=== PATIENT | female | born 1965 | race African-American/Black ===

== ENCOUNTER 2024-12-23 07:59 | Emergency (ER) | payer OTHER, SELFPAY ==
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
--- NOTE | ~2024-12-23 | XR_ITS ---
EXAMINATION: XR chest 2V, 12/23/2024 9:15 CDT HISTORY: rib pain COMPARISON: No comparisons available. Technique: 2 views obtained. Findings: The lungs are clear, no effusion. No pneumothorax. Heart is normal size. Mediastinal and hilar contours are within normal limits. Bony thorax no acute abnormality. Impression: No acute cardiopulmonary abnormality. Reviewed, dictated and finalized at location A. Impression: No acute cardiopulmonary abnormality.
[2024-12-23 08:19] VITALS: BP 146/77; PULSE 88; RESP 16; TEMP 36.7; O2SAT 100
[2024-12-23] MEDS: IBUPROFEN 600 MG TABLET PO (09:33)
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
[2024-12-23 10:20] VITALS: BP 157/77; PULSE 99; RESP 16; O2SAT 99
--- OUTSIDE RECORDS SUMMARY | 2024-12-23 10:21 | XMS_ITS | Clinical Summary ---
Author Organization [facility] Building Address [address] [place] [address] Care Team Providers Care Software Engineering Associate Manager Name Role Phone Dalia Chase MD Primary Care Pro vider Allergies No known active allergies Medications amoxicillin-cla vulanate (AUGMENTIN) 875-125 mg per tablet Take 1 tablet by mouth every 12 (twelve) hours 14 tablet 08/25/2024 Active predniSONE (DELTASONE) 20 mg tablet Take 2 tablets (40 mg) by mouth daily 8 tablet 08/25/2024 Active ketorolac (TORADOL) 10 mg tablet Take 1 tablet (10 mg total) by mouth every 6 (six) hours as needed for pain 20 tablet 08/25/2024 Active Active Problems Problem Noted Date Diagnosed Date Annual physical exam 03/15/2022 Assessment & Plan (03/15/2022 6:36 AM COMPANY ACCOUNTANT): Reviewed PMH & PHQ Screening PHQ-2 Total Score (If total score is 3 or more points, staff should administer the PHQ-9): 0 PHQ-9 Total Score: 1 Reviewed medications and supplements HCM: orders placed as needed Cigarette nicotine dependence without complicati on 03/12/2022 Assessment & Plan (03/12/2022 11:10 AM COMPANY ACCOUNTANT): Interested in quitting. Discussed wellbutrin, she defers wants to try lozenges/gum first Elevated BP without diagnosis of hypertension Assessment & Plan (03/12/2022 11:08 AM COMPANY ACCOUNTANT): Blood pressure within normal limits today Recommend monitoring at home, follow up if consistently >140/90 Discussed lifestyle modifications Immunizations Immunization Administration Dates Next Due Influenza, Quadrivalent, Spl it, Preservative Free, Intramuscular 03/12/2022 Surgical History Surgery Date Site/Laterality Comments HYSTERECTOMY 04/15/2012 - 04/14/2013 total Family History Medical History Relation Name Comments Cancer Father No Known Problems Mother Breast cancer Mother's Sister Relation Name Status Comments Father Mother Alive Mother's Sister Social History Tobacco Use Types Packs/Day Years Used Date Smoking Tobacco: Every Day Cigarettes Tobacco Cessation:Ready to Q uit: Not Asked; Counseling Given: Not Answered AUDIT-C Answer Date Recorded Q1: How often do you have a drink containing alcohol? 4 or more times a week 03/12/2022 Average Number of Drinks Not on file 022 Frequency of Binge Drinking Not on file 02/14 PHQ-2 Answer Date Recorded PHQ-2 Total Score (If total score is 3 or more points, staff should administer the PHQ-9) 0 03/12/2022 Personal Safety Answer Date Recorded Have you ever been in or are you currently in a harmful physical or emotional relationship or is someone making you feel afraid or unsafe? Denies 08/25/2024 Comments No Sex and Gender Information Value Date Recorded Sex Assigned at Not on file Legal Sex Female 2:53 PM CDT Gender Identity Not on file Sexual Orientation Not on file Obstetrics History Para Term AB IAB SAB Ectopic Multiple Livin g Live Births 3 2 2 0 1 0 1 0 0 2 2 Date Outcome GA Total Labor Labor/2nd/3rd Weight Sex Type Anes PTL Shanon A1 A5 Name Clin Term Term SAB Last Filed Vital Signs Vital Sign Reading Time Taken Comments Blood Pressure 181/93 08/25/2024 9:35 PM CDT Pulse 74 08/25/2024 5:51 PM CDT Temperature 37.2 C (99 F) 08/25/2024 5:51 PM CDT Respiratory Rate 18 08/25/2024 9:35 PM CDT Oxygen Saturation 99% 08/25/2024 5:51 PM CDT Inhaled Oxygen Concentration - - Weight 53.2 kg (117 lb 4.6 oz) 08/25/2024 5:51 P M CDT Height 149.9 cm (4' 11) 08/25/2024 5:51 PM CDT Body Mass Index 23.69 08/25/2024 5:51 PM CDT Plan of Treatment Health Maintenance Due Date Last Done Comments Colon Cancer Screening-Colonoscopy 1965 DTaP/Tdap/Td Vaccine (1 - Tdap) 08/03/1974 Hepatitis B Screening 08/03/1981 Pneumococcal vaccine <65 (1 of 2 - PCV) 08/03/1982 Zoster Vaccine (1 of 2) 08/03/2013 Depression Screening 03/12/2023 03/12/2022, 03/12/20 Regular Well Visit/Exam 18-64 03/12/2023 03/12/2022, 01/29/2022 Breast Cancer Screening-Mammogram 03/20/2023 022 Influenza Vaccine (#1) 2024 03/12/2022 Hepatitis C Screening Completed 03/12/2022 Procedures Procedure Name Priority Date/Time Associated Diagnosis Comments SCREENING MAMMOGRAM BILATERAL W AGATA Schedule Routine, Read Routine (OP Routine) 03/20/2022 9:58 AM COMPANY ACCOUNTANT Well woman exam with routine gynecological exam HEPATITIS C ANTIBODY Routine 03/12/2022 11:48 AM COMPANY ACCOUNTANT Need for hepatitis C screening test from Last 3 Months or Most Recently Relevant to Health Maintenance Results * SCREENING MAMMOGRAM BILATERAL W AGATA (03/20/2022 9:58 AM COMPANY ACCOUNTANT) Anatomical Region Laterality Modality Breast Bilateral Mammography Impressions 03/21/2022 1:43 PM COMPANY ACCOUNTANT BI-RADS ATLAS category (overall): 1 - Negative There is no mammographic evidence of malignancy. A 1 year screening mammogram is recommended. The patient has been or will be contacted. We recommend annual screening mammography for women at average risk of breast cancer beginning at age 40, based on guidelines of the [employer] (ACR Practice Parameter for the Performance of Screening and Diagnostic Mammography) and [employer]. For women with and elevated risk of breast cancer, please refer to the ACR Practice Parameter for specific screening recommendations. The patient will be entered into a reminder system with a target due date of 1 year for her next screening exam. Narrative 03/21/2022 1:43 PM COMPANY ACCOUNTANT SCREENING MAMMOGRAM BILATERAL W AGATA: 03/20/22 The study was acquired using full field digital technology and interpreted from soft copy. 2D digital mammographic views, as well as 3D digital tomosynthesis were performed in the CC and MLO projections. CLINICAL: Well woman exam with routine gynecological exam. No relevant medical history has been documented for this patient. History of breast cancer in Mother's Sister. COMPARISONS: 01/21/2015 Breast Imaging Screening Outside Reference BREAST TISSUE: The breasts have scattered areas of fibroglandular density. FINDINGS: No suspicious masses, suspicious calcifications, or other suspicious findings are seen within either breast. There has been no suspicious change. us Taty Lucas NP IMG MAMMO PROCEDURES Final Resul t * Hepatitis C antibody (03/12/2022 11:48 AM COMPANY ACCOUNTANT) Hep C Ab Nonreactive Nonreactive CASIMIRO MCDONALD Comment: Interpretive Data Nonreactive: Antibodies to HCV not detected. Does NOT exclude the possibility of recent exposure to HCV. Equivocal: Equivocal for HCV antibodies. Supplemental molecular testing will be automatically performed to determine infection status in accordance with current CDC screening recommendations. Reactive: Positive for HCV antibodies. This may represent current or past HCV infection. Supplemental molecular testing will be automatically performed to determine current infection status in accordance with current CDC screening recommendations. Interpretive data was last revised on 2019. Blood 03/12/2022 11:4 8 AM COMPANY ACCOUNTANT 03/12/2022 2:44 PM COMPANY ACCOUNTANT us Dalia Chase MD LAB MICROBIOLOGY - GENERAL ORDERABLES Final Result [facility]IMIRO [address] [facility] Department [place] [address] from Last 3 Months or Most Recently Relevant to Health Maintenance Insurance [facility] PPO [facility] [place] PPO Care Teams Software Engineering Associate Manager Relationship Specialty Start Date End Date Dalia Chase MD PCP - General Family Medicine 03/12/22
--- OUTSIDE RECORDS SUMMARY | 2024-12-23 10:21 | XMS_ITS | Clinical Summary ---
Author Organization [facility] Care Team Providers Care Grapple Crew Leader Name Role Phone Unavailable Primary Care Provider Unavailabl e Social History Tobacco Use Types Packs/Day Years Used Date Smoking Tobacco: Never Assessed Comments Unknown Sex and Gender Information Value Date Recorded Sex Assigned at Not on file Legal Sex Female 10:21 AM HAT IRONER Gender Identity Not on file Sexual Orientation Not on file Plan of Treatment Health Maintenance Due Date Last Done Comments Hepatitis C Virus (HCV) Screening 1965 TdaP Immunization 1965 Pap Smear 08/03/1984 Cervical Cancer Screening (CCS) 08/03/1993 HPV/Cotest 08/03/1993 Cologuard 08/03/2008 Colonoscopy 08/03/2008 Colorectal Cancer Screening 08/03/2008 Immunochemical Fecal Occult Blood 08/03/2008 Pneumococcal Immunization (5 0+ years) (1 of 1 - PCV) 08/03/2013 Zoster Immunization (1 of 2) 08/03/2013 SARS-COV-2 Immunization (3 - season) 2023 09/05/2020, 08/12/2020 Influenza Immunization (#1) 2024 Respiratory Syncytial Virus (RSV) Immunization (Adult) (1 - 1-dose 75+ series) 08/03/2038 Hepatitis B Immunization Aged Out No longer eligible based on patient's age to complete this topic Human Papillomavirus (HPV) Immunization Aged Out No longer eligible b ased on patient's age to complete this topic Meningococcal Immunization (ACWY) Aged Out No longer eligible b ased on patient's age to complete this topic Rotavirus Immunization Aged Out No lo nger eligible based on patient's age to complete this topic
--- OUTSIDE RECORDS SUMMARY | 2024-12-23 10:21 | XMS_ITS | Clinical Summary ---
Author Organization [facility] Address [address] [place] [address] Care Team Providers Care Tearoom Host/Hostess Name Role Phone Unavailable Primary Care Provider Unavailabl e Source Comments [facility],non-owned Affiliates and Associated Physician Practices is amultiple site organization consisting of ambulatory clinics and hospital sitesin [place], [place], [place] and [place]. This disclosure is being madepursuant to the Care Everywhere program and may not contain all information available regarding this patient. Last updated 18.[facility] Social History Tobacco Use Types Packs/Day Years Used Date Smoking Tobacco: Never Assessed Comments Unknown Sex and Gender Information Value Date Recorded Sex Assigned at Not on file Legal Sex Female 3:32 PM CDT Gender Identity Not on file Sexual Orientation Not on file Plan of Treatment Upcoming Encounters Date Type Department Care Team (Late st Contact Info) Description 01/15/2025 10:20 AM CDT Office Visit 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 [address] [address] [place] [address] Health Maintenance Due Date Last Done Comments COLOGUARD (AGES 45-75) - COL ON CA SCREENING 1963 COLON MONITORING 1963 COLONOSCOPY - COLON CA SCREENING 1963 CT COLONOGRAPHY - COLON CA SCREENING 1965 Colorectal Cancer Screening 1965 FIT - COLON CA SCREENING 1963 FLEX SIG - COLON CA SCREENING 1965 LIPID TESTING 1965 MAMMOGRAM 1965 HIV SCREENING 08/03/1978 HEPATITIS C SCREENING 07/30/1981 DTAP/TDAP/TD VACCINES (1 - Tdap) 08/03/1982 PNEUMOCOCCAL VACCINE 50+ (1 of 1 - PCV) 08/03/2013 ZOSTER VACCINE (1 of 2) 08/03/2013 DEPRESSION SCREENING 04/15/2024 COVID-19 VACCINE (3 - 2024-2 6 season) 2024 09/05/2020, 08/12/2020 INFLUENZA VACCINE (#1) 2024 03/12/2022 Respiratory Syncytial Virus (RSV) Vaccine Pt: or over 60 yrs (1 - 1-dose 75+ series) 08/03/2038 HEPATITIS B VACCINE Aged Out No longe r eligible based on patient's age to complete this topic HIB VACCINE Aged Out No longer eligi ble based on patient's age to complete this topic HPV VACCINE Aged Out No longer eligi ble based on patient's age to complete this topic MENINGOCOCCAL (Group B) VACCINE SHARED DECISION-MAKING Aged Out No longer eligible based on patient's age to complete this topic MENINGOCOCCAL GROUPS A/C/Y/W VACCINE Aged Out No longer eligible b ased on patient's age to complete this topic
== END 2024-12-23 10:23 | disposition home or self-care (01) ==
PROVIDERS: Emergency Provider Emergency Medicine
DX: S79.912A Unspecified injury of left hip, initial encounter (principal); S79.911A Unspecified injury of right hip, initial encounter; S29.9XXA Unspecified injury of thorax, initial encounter; V49.50XA Passenger injured in collision with unspecified motor vehicles in traffic accident, initial encounter
CPT/HCPCS: 71046; 72072; 72100; 73521; 99284; A9270